=== PATIENT | male | born 1970 | race Hispanic/Latino ===

== ENCOUNTER 2018-01-15 18:26 | Emergency (ER) | payer SELFPAY ==
[~2018-01-15] VITALS: Ht 167.6 cm; Wt 72.6 kg
[2018-01-15] MEDS ORDERED: IBUPROFEN 600 MG TAB PO STA ×2 (18:36→18:40)
[2018-01-15] MEDS ORDERED: SODIUM CHLORIDE 0.9% 1000ML 1,000 ML IV STA (18:40)
[2018-01-15] MEDS ORDERED: ACETAMINOPHEN 325 MG TAB PO ONE (18:45)
[2018-01-15 18:59] LABS: BASOPHILS % 0.5 % (0.0-1.0); EOSINOPHILS # (AUTO) 0.1 (0.0-0.4); EOSINOPHILS % 1.3 % (0.0-6.0); HEMATOCRIT 36.6 % (38.2-49.6); HEMOGLOBIN 12.7 g/dL (14.0-18.0); LYMPHOCYTES # (AUTO) 1.4 (1.0-3.2); LYMPHOCYTES % 16.6 % (18.0-39.1); MEAN CORPUSCULAR HEMOGLOBIN 30.2 pg (28-32); MEAN CORPUSCULAR HGB CONC 34.7 g/dL (31-35); MEAN CORPUSCULAR VOLUME 87.1 fL (81-99); MONOCYTES # (AUTO) 0.9 (0.2-0.8); MONOCYTES % 10.8 % (4.4-11.3); NEUTROPHILS % 70.3 % (38.7-80.0); PLATELET COUNT 419 x10e3/uL (140-360); RED CELL DISTRIBUTION WIDTH 11.7 % (11.7-14.4)
[2018-01-15 19:13] LABS: ALANINE AMINOTRANSFERASE 38 IU/L (0-55); ALBUMIN 3.3 g/dL (3.5-5.0); ALBUMIN/GLOBULIN RATIO 0.7 (0.8-2.0); ALKALINE PHOSPHATASE 120 IU/L (40-150); BLOOD UREA NITROGEN 20 mg/dL (7-26); BUN/CREATININE RATIO 19 (6-25); CALCIUM 10.3 mg/dL (8.4-10.2); CARBON DIOXIDE 23 mmol/L (22-29); CHLORIDE 103 mmol/L (98-107); CREATININE, SERUM 1.06 mg/dL (0.72-1.25); EST GLOMERULAR FILTRATION RATE > 60 ML/MIN (60-); GLUCOSE 111 mg/dL (74-118); SODIUM 137 mmol/L (136-145)
[2018-01-15 19:32] LABS: INFLUENZAE A&B ANTIGEN (RAPID) NEGATIVE (NEGATIVE); STREPTOCOCCUS GRP A ANTIGEN NEGATIVE (NEGATIVE)
[2018-01-15 19:38] LABS: CLARITY,URINE CLEAR (CLEAR); COLOR,URINE YELLOW (YELLOW)
[2018-01-15 19:39] LABS: BILIRUBIN,URINE NEGATIVE (NEGATIVE); KETONES,URINE NEGATIVE (NEGATIVE); LEUKOCYTE ESTERASE ,URINE NEGATIVE (NEGATIVE); NITRITE,URINE NEGATIVE (NEGATIVE); PROTEIN,URINE DIPSTICK NEGATIVE (NEGATIVE); URINE UROBILINOGEN 0.2 mg/dL (0.2 - 1)
[2018-01-15 19:45] LABS: BACTERIA,URINE RARE /HPF; EPITHELIAL CELLS,URINE RARE /LPF; MUCUS,URINE FEW (RARE); RBC,URINE 0-5 /HPF (0-5); WBC,URINE (MAN) 0-5 /HPF (0-5)
--- NOTE | 2018-01-15 19:47 | Diagnostic Imaging Report ---
EXAMINATION: CHEST 2 VIEWS INDICATION: Fever for several days. COMPARISON: None FINDINGS: PA and lateral views TUBES and LINES: None. LUNGS: Lungs are well inflated. Calcified granuloma in the right lung base. There is no evidence of pneumonia or pulmonary edema. PLEURA: No pleural effusion or pneumothorax. HEART AND MEDIASTINUM: The cardiomediastinal silhouette is unremarkable. BONES AND SOFT TISSUES: No acute osseous lesion. Soft tissues are unremarkable. UPPER ABDOMEN: No free air under the diaphragm. IMPRESSION: No acute thoracic abnormality. Signed by: DR. Tomi Colin MD on 01/15/2018 7:44 PM
[2018-01-15] MEDS ORDERED: KETOROLAC TROMETHAMINE 30 MG/ML VIAL IV STA (19:53)
[2018-01-15 21:09] VITALS: BP 109/67
== END 2018-01-15 21:10 | disposition home or self-care (01) ==
LOC: ER 18:26
DX: R50.9 Fever, unspecified (principal); R51 Headache; M54.2 Cervicalgia; I10 Essential (primary) hypertension
CPT/HCPCS: 36415; 71046; 80053; 81001; 83518; 85025; 86308; 87040; 87070; 87086; 87400; 99284; J1885; J7030

== ENCOUNTER 2022-06-27 19:38 | Inpatient (IN) | payer SELFPAY ==
[~2022-06-27] VITALS: Ht 167.6 cm; Wt 81.6 kg
[~2022-06-27 19:38] MED LIST: SODIUM CHLORIDE FLUSH 10 ML SYR IV PRN
[2022-06-27] MEDS ORDERED: ONDANSETRON HCL INJ 2MG/ML 2ML 2 MG/ML VIAL IV STA (21:08)
[2022-06-27 21:14] LABS: BASOPHILS % 0.5 % (0.0-1.0); EOSINOPHILS # (AUTO) 0.2 (0.0-0.4); EOSINOPHILS % 4.5 % (0.0-6.0); HEMATOCRIT 40.7 % (38.2-49.6); HEMOGLOBIN 13.7 g/dL (14.0-18.0); LYMPHOCYTES # (AUTO) 1.1 (1.0-3.2); LYMPHOCYTES % 26.5 % (18.0-39.1); MEAN CORPUSCULAR HEMOGLOBIN 30.5 pg (28-32); MEAN CORPUSCULAR HGB CONC 33.7 g/dL (31-35); MEAN CORPUSCULAR VOLUME 90.6 fL (81-99); MONOCYTES # (AUTO) 0.6 (0.2-0.8); MONOCYTES % 15.8 % (4.4-11.3); NEUTROPHILS # (AUTO) 2.1 (2.1-6.9); NEUTROPHILS % 52.2 % (38.7-80.0); PLATELET COUNT 195 x10e3/uL (140-360); RED BLOOD COUNT 4.49 x10e6/uL (4.3-5.7); RED CELL DISTRIBUTION WIDTH 12.7 % (11.7-14.4)
[2022-06-27] MEDS ORDERED: SODIUM CHLORIDE 0.9% 1000ML 1,000 ML IV ONE (21:15)
[2022-06-27] MEDS ORDERED: Morphine 4mg INJECTION 4 MG/ML INJ IV ONE (21:15)
[2022-06-27 21:19] LABS: INR 1.05; PROTHROMBIN TIME 14.2 seconds (11.9-14.5)
[2022-06-27 21:20] LABS: PARTIAL THROMBOPLASTIN TIME 36.8 seconds (23.8-35.5)
[2022-06-27 21:29] LABS: ALANINE AMINOTRANSFERASE 64 IU/L (0-55); ALBUMIN/GLOBULIN RATIO 1.2 (0.8-2.0); ALKALINE PHOSPHATASE 63 IU/L (40-150); ANION GAP 13.3 mmol/L (8-16); BLOOD UREA NITROGEN 15 mg/dL (7-26); BUN/CREATININE RATIO 14 (6-25); CALCIUM 8.9 mg/dL (8.4-10.2); CARBON DIOXIDE 24 mmol/L (22-29); CHLORIDE 102 mmol/L (98-107); CREATININE, SERUM 1.05 mg/dL (0.72-1.25); GLUCOSE 117 mg/dL (74-118); LIPASE 15 U/L (8-78); POTASSIUM 3.3 mmol/L (3.5-5.1); SODIUM 136 mmol/L (136-145)
[2022-06-27] MEDS ORDERED: IOPAMIDOL 370 MG/ML 100 ML INFUS..BTL INJ ONE (21:41)
[2022-06-27 21:46] LABS: AMPHETAMINES SCREEN,URINE NEGATIVE (NEGATIVE); BENZODIAZEPINES SCREEN,URINE NEGATIVE (NEGATIVE); CLARITY,URINE SL CLOUDY (CLEAR); COLOR,URINE YELLOW (YELLOW); KETONES,URINE NEGATIVE (NEGATIVE); LEUKOCYTE ESTERASE ,URINE NEGATIVE (NEGATIVE); NITRITE,URINE NEGATIVE (NEGATIVE); PHENCYCLIDINE SCREEN,URINE NEGATIVE (NEGATIVE); PROTEIN,URINE DIPSTICK NEGATIVE (NEGATIVE); URINE UROBILINOGEN 0.2 mg/dL (0.2 - 1)
[2022-06-27 21:57] LABS: AMORPHOUS SEDIMENT,URINE MODERATE (FEW); BACTERIA,URINE FEW /HPF; MUCUS,URINE MODERATE (RARE)
[2022-06-28] MEDS ORDERED: Morphine 2mg Syringe 2 MG/ML SYR IV PRN (03:15)
[2022-06-28] MEDS ORDERED: ONDANSETRON HCL INJ 2MG/ML 2ML 2 MG/ML VIAL IV PRN (03:15)
[2022-06-28] MEDS: SODIUM CHLORIDE 0.9% 1000ML 1,000 ML IV SCH ×3 (03:45→21:26)
[2022-06-28 11:30] VITALS: BP 107/75
[2022-06-28 11:47] VITALS: BP 103/76
[2022-06-28] MEDS ORDERED: [UNRECOGNIZED DRUG - REMARK] PO (12:13)
[2022-06-28 16:42] VITALS: BP 106/76
[2022-06-28] MEDS ORDERED: CIPROFLOXACIN 500 MG TAB PO SCH (18:00)
[2022-06-28 19:30] VITALS: BP 108/76
[2022-06-28 20:00] VITALS: BP 106/76
[2022-06-28] MEDS: CIPROFLOXACIN 500 MG TAB PO SCH (21:26)
[2022-06-29] VITALS: BP 101/63
[2022-06-29 04:00] VITALS: BP 99/61
[2022-06-29] MEDS: SODIUM CHLORIDE 0.9% 1000ML 1,000 ML IV SCH ×2 (05:56→11:15)
[2022-06-29 08:22] VITALS: BP 95/65
[2022-06-29] MEDS: CIPROFLOXACIN 500 MG TAB PO SCH (09:03)
[2022-06-29 09:09] LABS: BASOPHILS % 0.7 % (0.0-1.0); EOSINOPHILS # (AUTO) 0.2 (0.0-0.4); EOSINOPHILS % 5.8 % (0.0-6.0); HEMATOCRIT 37.4 % (38.2-49.6); HEMOGLOBIN 12.3 g/dL (14.0-18.0); LYMPHOCYTES # (AUTO) 1.2 (1.0-3.2); MEAN CORPUSCULAR HEMOGLOBIN 30.4 pg (28-32); MEAN CORPUSCULAR HGB CONC 32.9 g/dL (31-35); MEAN CORPUSCULAR VOLUME 92.6 fL (81-99); MONOCYTES # (AUTO) 0.4 (0.2-0.8); MONOCYTES % 14.6 % (4.4-11.3); NEUTROPHILS # (AUTO) 1.2 (2.1-6.9); NEUTROPHILS % 39.6 % (38.7-80.0); PLATELET COUNT 196 x10e3/uL (140-360); RED BLOOD COUNT 4.04 x10e6/uL (4.3-5.7); RED CELL DISTRIBUTION WIDTH 12.8 % (11.7-14.4)
[2022-06-29 09:29] VITALS: BP 95/65
[2022-06-29 09:29] LABS: ALBUMIN 3.5 g/dL (3.5-5.0); ALBUMIN/GLOBULIN RATIO 1.3 (0.8-2.0); ANION GAP 10.7 mmol/L (8-16); CALCIUM 8.4 mg/dL (8.4-10.2); CREATININE, SERUM 0.88 mg/dL (0.72-1.25); POTASSIUM 3.7 mmol/L (3.5-5.1)
[2022-06-29 12:22] VITALS: BP 119/81
[2022-06-29] MEDS ORDERED: CIPRO500 MG PO (17:01)
[2022-06-29 17:16] VITALS: BP 99/82
== END 2022-06-29 18:10 | disposition home or self-care (01) | DRG 390 ==
LOC: ER 19:42 → ERHOLD 06-28 03:18 → MED/SURG 06-28 11:08
PROVIDERS: ADMIT Family Medicine; ATTEND Family Medicine
DX: K56.600 Partial intestinal obstruction, unspecified as to cause (principal); K52.9 Noninfective gastroenteritis and colitis, unspecified; K76.0 Fatty (change of) liver, not elsewhere classified; Z20.822 Contact with and (suspected) exposure to COVID-19; K80.20 Calculus of gallbladder without cholecystitis without obstruction
CPT/HCPCS: 0223U; 36415; 71045; 74177; 80053; 80307; 81001; 83690; 84484; 85025; 85610; 85730; 93005; 99284; J2270; J2405; J7030; Q9967

== ENCOUNTER 2024-05-04 12:44 | Emergency (ER) | payer SELFPAY ==
[~2024-05-04] VITALS: Ht 167.6 cm; Wt 81.6 kg
[~2024-05-04 12:44] MED LIST changes: +CIPRO500 MG PO; -SODIUM CHLORIDE FLUSH 10 ML SYR IV PRN; +[UNRECOGNIZED DRUG - REMARK] PO
[2024-05-04 13:35] VITALS: PULSE 84; RESP 16; TEMP 98.7; O2SAT 98
[2024-05-04] MEDS ORDERED: AZITHROMYCIN250 MG PO (13:56)
== END 2024-05-04 14:00 | disposition home or self-care (01) ==
LOC: ER 13:48
DX: R05.9 Cough, unspecified (principal); J06.9 Acute upper respiratory infection, unspecified; K21.9 Gastro-esophageal reflux disease without esophagitis; E78.5 Hyperlipidemia, unspecified
CPT/HCPCS: 99282